=== PATIENT | female | born 1940 | race Caucasian/White ===

== ENCOUNTER 2017-12-17 18:37 | Observation (INO) | payer OTHER ==
--- NOTE | 2017-12-17 18:52 | CPEKG ---
Heart Rate: 172 RR Interval: 349 QRSD Interval: 74 QT Interval: 292 QTC Interval: 494 QRS Ada: -16 T Wave Ada: 102 EKG Severity - ABNORMAL ECG - EKG Impression: ATRIAL FIBRILLATION WITH RAPID V-RATE EKG Impression: PROBABLE LVH WITH SECONDARY REPOL ABNRM EKG Impression: ST DEPRESSION, PROBABLY RATE RELATED Electronically Signed By: Ketan Tomlinson 17-Dec-2017 19:16:24
[2017-12-17] MEDS ORDERED: DABIGATRAN ETEXILATE MESYL 150 MG CAP PO ONE (18:58)
[2017-12-17] MEDS ORDERED: DILTIAZEM 125 MG in D5W 125 ML IV ONE (18:58)
[2017-12-17 19:02] LABS: PLATELET COUNT 299 10^3/uL (150-400)
--- NOTE | 2017-12-17 19:12 | EDPHY ---
H & P Time Seen by Provider: 12/17/17 18:44 HPI/ROS: CHIEF COMPLAINT: Chest tightness and rapid heart rate HISTORY OF PRESENT ILLNESS: Patient was diagnosed with atrial fibrillation 1 year ago and had a nuclear stress test then. She has never had a heart attack. She currently has a diagnosis of atrial fibrillation and is on Pradaxa. She travel from [facility] and arrived in [place] around 4:00 p.m.. Around that time she started getting rapid and alternating very slow heart rate, with confirmed by her [id number] who is a physician as a slowest heart rate of about 30 beats per minute. She was lightheaded but did not actually have syncope. Around that time she also started having chest tightness just right of the sternum, and a little bit of shortness of breath. Chest tightness did not radiate. Was a little bit worse with exertion. No nausea or diaphoresis. She still has palpitations and racing heart rate. REVIEW OF SYSTEMS: Eye: no change in vision ENT: no sore throat Cardiac: HPI Pulmonary: HPI no cough Abdomen: no vomiting, diarrhea, abdominal pain Musculoskeletal: no back pain Skin: no rash Neuro: no headache Constitutional: no fever : no urinary symptoms A comprehensive 10 point review of systems is otherwise negative aside from elements mentioned in the history of present illness. PAST MEDICAL HISTORY: Atrial fibrillation, hypertension and hyperlipidemia Social history: Lives in [facility], recently arrived here General Appearance: Alert and conversant, cooperative. Eyes: No scleral icterus. ENT, Mouth: Normal mucous membranes. Respiratory: Normal respiratory effort, breath sounds equal, lungs are clear to auscultation. Cardiovascular: Irregularly irregular and tachycardic. Gastrointestinal: Abdomen is soft and non tender. Neurological: Alert, face symmetric, normal motor and sensory in extremities. Skin: Warm and dry, no rashes. Musculoskeletal: No peripheral edema. Psychiatric: Not agitated. Emergency Department course/MDM: Patient did have a lot of stress yesterday with her son, is emotional in a bit tearful here. No aspirin because of Pradaxa. She has not missed her anticoagulation recently and so I think that pulmonary embolism would be unlikely. Concern for acute coronary syndrome or Takatsubo, plan for rate control with IV diltiazem and troponin. Likely admission. 1939: Negative chest x-ray, appears to be back in sinus rhythm at this point. Patient has not at this point started her diltiazem drip yet. 2nd EKG obtained. Plan to admit and cycle troponins with new onset tachycardia and bradycardia with chest discomfort. Monitor rhythm. 1948: EK-lead EKG interpreted by me; official reading is in trace master. My interpretation is sinus rhythm with inferior Q-waves noted, possible old MO. Rate 90. Smoking Status: Never smoked Constitutional: Initial Vital Signs Temperature (C) 36.6 C 12/17/17 18:46 Heart Rate 151 H 12/17/17 18:46 Respiratory Rate 16 12/17/17 18:46 Blood Pressure 142/11 H 12/17/17 18:46 O2 Sat (%) 92 12/17/17 18:46 O2 Delivery Mode Room Air Allergies/Adverse Reactions: clindamycin Allergy (Verified 12/17/17 19:25) nausea Sulfa (Sulfonamide Antibiotics) Allergy (Verified 12/17/17 19:25) Itching Home Medications: Medication Instructions Recorded Dabigatran Etexilate Mesyl 150 mg PO BID 12/17/17 [Pradaxa 150 MG (*)] Diltiazem [Cardizem 60 MG (*)] 60 mg PO DAILY 12/17/17 Hydrochlorothiazide [HCTZ (*)] 12.5 mg PO DAILY 12/17/17 Metoprolol Tartrate [Lopressor 25 12.5 mg PO BID 12/17/17 mg (*)] SIMVASTATIN 10 mg PO DAILY 12/17/17 Medical Decision Making - Diagnostics EKG Interpretation: 12-lead EKG interpreted by me; official reading is in trace master. My interpretation is atrial fibrillation with inferior ST depression tachycardic Imaging Results: Imaging Impressions Chest X-Ray 12/17/17 18:58 Impression: 1. Atherosclerotic tortuous aorta. 2. Lingular scarring in the lingula. 3. No pneumonia or pulmonary edema. Chest x-ray negative for infiltrate or CHF. Imaging: I viewed and interpreted images myself Differential Diagnosis: Differential diagnosis considered for chest pain including but not limited to myocardial ischemia, aortic dissection, pericarditis, pulmonary embolus, chest wall pain, pleural inflammation and pulmonary infectious causes. Consult/Admit Bed Type: [place] [id number] - Data Points Laboratory Results: Laboratory Results 12/17/17 18:59 12/17/17 18:59 0318 12/17/17 18:59 18:59 WBC 12.28 10^3/uL H 10^3/uL (3.80-9.50) RBC 4.75 10^6/uL 10^6/uL (4.18-5.33) Hgb 14.9 g/dL g/dL (12.6-16.3) Hct 43.6 % % (38.0-47.0) MCV 91.8 fL fL (81.5-99.8) MCH 31.4 pg pg (27.9-34.1) MCHC 34.2 g/dL g/dL (32.4-36.7) RDW 12.0 % % (11.5-15.2) Plt Count 299 10^3/uL 10^3/uL (150-400) MPV 8.6 fL L fL (8.7-11.7) Neut % (Auto) 57.4 % % (39.3-74.2) Lymph % (Auto) 31.4 % % (15.0-45.0) [place] % (Auto) 8.8 % % (4.5-13.0) Eos % (Auto) 1.6 % % (0.6-7.6) Baso % (Auto) 0.4 % % (0.3-1.7) Nucleat RBC Rel Count 0.0 % % (0.0-0.2) Absolute Neuts (auto) 7.05 10^3/uL H 10^3/uL (1.70-6.50) Absolute Lymphs (auto) 3.85 10^3/uL H 10^3/uL (1.00-3.00) Absolute Monos (auto) 1.08 10^3/uL H 10^3/uL (0.30-0.80) Absolute Eos (auto) 0.20 10^3/uL 10^3/uL (0.03-0.40) Absolute Basos (auto) 0.05 10^3/uL 10^3/uL (0.02-0.10) Absolute Nucleated RBC 0.00 10^3/uL 10^3/uL (0-0.01) Immature Gran % 0.4 % % (0.0-1.1) Immature Gran # 0.05 10^3/uL 10^3/uL (0.00-0.10) Sodium 135 mEq/L mEq/L (135-145) Potassium 3.7 mEq/L mEq/L (3.5-5.2) Chloride 100 mEq/L mEq/L (97-110) Carbon Dioxide 22 mEq/l mEq/l (22-31) Anion Gap 13 mEq/L mEq/L (8-16) BUN 19 mg/dL mg/dL (7-23) Creatinine 0.8 mg/dL mg/dL (0.6-1.0) Estimated GFR > 60 Glucose 115 mg/dL H mg/dL (70-100) Calcium 9.7 mg/dL mg/dL (8.5-10.4) Troponin I < 0.012 ng/mL ng/mL (0.000-0.034) Medications Given: Discontinued Medications Dabigatran (Pradaxa) 150 mg PO EDNOW ONE Stop: 12/17/17 18:59 Last Admin: 12/17/17 19:47 Dose: 150 mg Departure - Departure Disposition: [facility] Inpatient Acute Clinical Impression: Chest pain Qualifiers: Chest pain type: unspecified Qualified Code(s): R07.9 - Chest pain, unspecified Atrial fibrillation Qualifiers: Atrial fibrillation type: paroxysmal Qualified Code(s): I48.0 - Paroxysmal atrial fibrillation Condition: Good
--- NOTE | 2017-12-17 19:48 | CPEKG ---
Heart Rate: 90 RR Interval: 667 P-R Interval: 194 QRSD Interval: 84 QT Interval: 388 QTC Interval: 475 P [place]: 27 QRS [place]: -33 T Wave [place]: 46 EKG Severity - ABNORMAL ECG - EKG Impression: SINUS RHYTHM EKG Impression: INFERIOR INFARCT, OLD EKG Impression: ABNRM R PROG, CONSIDER ASMI OR LEAD PLACEMENT Electronically Signed By: Ketan Tomlinson 17-Dec-2017 19:49:45
[2017-12-17] MEDS ORDERED: ONDANSETRON DISINTEGRATING 4 MG TAB PO PRN (20:57)
[2017-12-17] MEDS ORDERED: ONDANSETRON 4 MG/2 ML VIAL IVP PRN (20:57)
[2017-12-17] MEDS ORDERED: METOPROLOL TARTRATE 25 MG TAB PO SCH ×2 (21:00→21:01)
[2017-12-17] MEDS: DABIGATRAN ETEXILATE MESYL 150 MG CAP PO SCH (21:41)
--- NOTE | 2017-12-17 21:43 | GHP ---
[f rep st] HISTORY AND PHYSICAL DATE OF ADMISSION: 12/17/2017 CHIEF COMPLAINT: Chest pain and palpitations. HISTORY OF PRESENT ILLNESS: This is a 77-year-old female who has history of atrial fibrillation diag nosed a year ago. At that time, she had a nuclear stress test which was negative. She does go into atrial fibrillation on occasion, but is usually in normal sinus rhythm. She, over the last several d ays, has had some right-sided chest pain that is pleuritic with some chest wall tenderness. About a day ago, she had an emotional discussion with her son. She then flew from [place] today, and shortly after she arrived, she began developing heart palpitations with worsening right-sided chest pain. T his continued and prompted her ER visit. In the ER, she was given diltiazem and she is now converted . Her chest pain is now improved. She is back to her baseline. She has not had any other problems. No fevers, chills, cough, dysuria, nausea, vomiting, diarrhea. REVIEW OF SYSTEMS: A 10-point review of systems was obtained and is otherwise negative. PAST MEDICAL HISTORY: 1. Atrial fibrillation. 2. Hypertension. 3. Hyperlipidemia. MEDICATIONS: Reviewed. SOCIAL HISTORY: No smoking or alcohol. Lives in [place]. FAMILY HISTORY: Reviewed. Noncontributory. PHYSICAL EXAMINATION: VITAL SIGNS: Afebrile, blood pressure is 156/101, heart rates in the 80s, oxy gen saturation 94% on 2 L. GENERAL: The patient is well developed, in no apparent distress. HEENT: Nonicteric sclerae. Extraocular movements intact. Moist mucous membranes. NECK: Supple. No thy romegaly. LUNGS: Good effort. Clear to auscultation bilaterally. CARDIOVASCULAR: Regular rate an d rhythm. No murmurs, rubs, or gallops. There is right chest wall tenderness. ABDOMEN: Positive b owel sounds. Soft, nontender, nondistended. No hepatosplenomegaly. EXTREMITIES: No clubbing, cyan osis, or edema. SKIN: Without rash. Dry, intact. NEUROLOGIC: Moving all 4 extremities equally. PSYCH: Normal mood and affect. LABORATORY DATA: Chemistries are normal. CBC is essentially normal, slightly elevated white blood c ell count. EKG personally reviewed and interpreted. Initial EKG: Atrial fibrillation versus atrial flutter with a rapid ventricular rate, post cardioversion she is in normal sinus rhythm. Chest x-ra y personally reviewed and interpreted, there are no acute changes. ASSESSMENT: 1. This is a 77-year-old female presenting with atypical chest pain and atrial fibrillation with rap id ventricular response. She has now converted. 2. Atrial fibrillation. The patient is on minimal medicines. We will increase her metoprolol to 25 mg b.i.d. daily at least. Blood pressure seems to be able to hold it. There is a question that she went bradycardic, according to her [id number], who is a retired urologist. Her heart rate fell for a short amount of time, low. We will continue to monitor her on telemetry to see if she has any episodes of bradycardia. She is already on anticoagulation, we will continue that. 3. Hypertension. Would prefer to increase her noé agents rather than being on a diuretic. I am g oing to hold her hydrochlorothiazide for now. 4. Right-sided chest pain. This sounds atypical. She does have reproducible tenderness and a negat mell stress test a year ago. We will cycle troponins, but if negative, would not pursue further. /[id number]/MODL
[2017-12-17] MEDS ORDERED: diphenhydrAMINE 25 MG CAP PO PRN (22:40)
[2017-12-17] MEDS: ACETAMINOPHEN 325 MG TAB PO PRN (23:12)
[2017-12-18] MEDS: DABIGATRAN ETEXILATE MESYL 150 MG CAP PO SCH (08:27)
[2017-12-18] MEDS: ACETAMINOPHEN 325 MG TAB PO PRN (08:34)
[2017-12-18] MEDS ORDERED: NON-FORMULARY NEW DRUG (Simvastatin [Simvastatin] 10 MG) PO SCH (09:00)
[2017-12-18] MEDS ORDERED: DILTIAZEM 60 MG TAB PO SCH (09:00)
[2017-12-18] MEDS ORDERED: PRAVASTATIN SODIUM 20 MG TAB PO SCH (09:00)
--- NOTE | 2017-12-18 12:15 | GDS ---
[f rep st] DISCHARGE SUMMARY DISCHARGE DIAGNOSES: 1. Paroxysmal atrial fibrillation. 2. Chronic musculoskeletal chest wall pain. 3. Hypertension. HISTORY: The patient is a 77-year-old female visiting from [place], who flew in yesterday morning an d went into rapid AFib yesterday afternoon. She has a known history of paroxysmal atrial fibrillatio n. She also has known chronic right chest wall pain, which her metalizer field operation has told her is musculos keletal. She had a stress test approximately 1 year ago. The chest pain has not changed in characte r. She spontaneously converted back to normal sinus rhythm. She is otherwise back to baseline. Regarding her medication regimen, she is on a short-acting diltiazem in the morning. She took it ext ra early yesterday morning prior to her flight. She went into rapid AFib around 4 p.m. I think this short-acting diltiazem was likely out of her system by that time. She has never previously tried a long-acting Cardizem. We discussed many options regarding med adjustments to try to prevent further recurrences of paroxysmal atrial fibrillation. We decided to attempt long-acting Cardizem 120 mg p.o . daily starting tomorrow morning. At the time of discharge she is again in a normal sinus rhythm. She is chronically anticoagulated on Pradaxa. DISCHARGE MEDICATIONS: Please see computer record for full detailed list. New medications: Prescri ption for Cardizem ER 120 mg p.o. daily, 30 tablets dispensed, starting tomorrow morning. She will t andrea this instead of her Cardizem short-acting 60 mg p.o. daily. We continued her metoprolol 12.5 mg p.o. b.i.d., as she was taking prior to admission, although she understands that if she does not unab le to tolerate the long-acting Cardizem, increasing the metoprolol 25 mg p.o. b.i.d. is another optio n. Blood pressures remained quite high during this hospitalization, so I also continued her low-dose hydrochlorothiazide 12.5 mg p.o. daily. ADDITIONAL DISCHARGE INSTRUCTIONS: Follow up with Cardiology upon return to [place]. Return to the emergency room for recurrence of symptoms. Patient was seen and examined by me on the day of discharge. /[id number]/MODL
[2017-12-18 12:17] VITALS: BP 167/85; PULSE 61; RESP 19; TEMP 98; O2SAT 95
== END 2017-12-18 13:17 | disposition home or self-care (01) ==
LOC: F2W 21:02
PROVIDERS: ADMIT Internal Medicine; ATTEND Internal Medicine
DX: I48.0 Paroxysmal atrial fibrillation (principal); R07.89 Other chest pain; I10 Essential (primary) hypertension; E78.5 Hyperlipidemia, unspecified
CPT/HCPCS: 71046; 93005; G0378